=== PATIENT | male | born 1975 | race Caucasian/White ===

== ENCOUNTER 2018-07-14 21:29 | Emergency (ER) | payer OTHER, BC ==
[~2018-07-14] VITALS: Ht 185.4 cm; Wt 79.4 kg
[2018-07-15] MEDS ORDERED: IBUP600 PO (00:12)
[2018-07-15] MEDS ORDERED: Lacri-Lube S.O3.5 GM BOTHEYES (00:12)
[2018-07-15] MEDS ORDERED: ERYT1OIN BOTHEYES (00:12)
== END 2018-07-15 00:38 | disposition home or self-care (01) ==
LOC: ER 21:29
DX: H16.133 Photokeratitis, bilateral (principal); F17.200 Nicotine dependence, unspecified, uncomplicated
CPT/HCPCS: 99283

== ENCOUNTER 2020-12-30 16:15 | Emergency (ER) | payer BC ==
[~2020-12-30] VITALS: Ht 185.4 cm; Wt 81.7 kg
[~2020-12-30 16:15] MED LIST: ERYT1OIN BOTHEYES; IBUP600 PO; Lacri-Lube S.O3.5 GM BOTHEYES
== END 2020-12-30 19:59 | disposition home or self-care (01) ==
LOC: ER 16:15
DX: S43.101A Unspecified dislocation of right acromioclavicular joint, initial encounter (principal); V86.55XA Driver of 3- or 4- wheeled all-terrain vehicle (ATV) injured in nontraffic accident, initial encounter; Y92.410 Unspecified street and highway as the place of occurrence of the external cause
CPT/HCPCS: 73030; 96372; 99283-25; J1885

== ENCOUNTER 2021-12-07 15:12 | Inpatient (IN) | payer BC ==
[~2021-12-07] VITALS: Ht 180.3 cm; Wt 83.9 kg
[2021-12-07 15:41] LABS: BASOPHILS ABSOLUTE AUTO 0.04 K/mm3 (0.00-0.23); BASOPHILS PERCENT AUTO 1 % (0-2); EOSINOPHILS PERCENT AUTO 4 % (0-6); Hematocrit 48.1 % (37.0-53.0); Hemoglobin 16.7 g/dL (13.5-17.5); IMMATURE GRAN ABSOLUTE AUTO 0.01 K/mm3 (0.00-0.10); IMMATURE GRAN PERCENT AUTO 0 % (0-1); LYMPHOCYTES ABSOLUTE AUTO 3.46 K/mm3 (0.84-5.20); LYMPHOCYTES PERCENT AUTO 40 % (21-46); MONOCYTES ABSOLUTE AUTO 0.63 K/mm3 (0.16-1.47); MONOCYTES PERCENT AUTO 7 % (4-13); Mean Corpuscular HGB 29.3 pg (26.0-34.0); Mean Corpuscular HGB Conc 34.7 g/dL (31.5-36.5); Mean Corpuscular Volume 84 fL (80-100); NEUTROPHILS ABSOLUTE AUTO 4.16 K/mm3 (1.96-9.15); NEUTROPHILS PERCENT AUTO 48 % (41-73); Platelet Count 289 K/mm3 (150-400); RDW Coefficient Variation 12.6 % (11.7-14.2); RDW Standard Deviation 38.8 fL (35.1-46.3)
[2021-12-07 15:58] LABS: Alanine Aminotransfer (ALT/SGP 42 U/L (12-78); Albumin/Globulin Ratio 1.1 (0.8-1.8); Alk Phos 106 U/L (50-136); Anion Gap 6 mmol/L (6-16); Aspartate Aminotrans (AST/SGOT 20 U/L (12-37); Bilirubin, Total 0.4 mg/dL (0.1-1.0); Blood Urea Nitrogen 13 mg/dL (8-24); CO2, Blood 29 mmol/L (21-32); Calcium, Blood 8.8 mg/dL (8.5-10.1); Chloride, Blood 104 mmol/L (98-108); Creatinine, Blood 1.18 mg/dL (0.60-1.20); Globulin, Blood 3.7 g/dL (2.2-4.0); Glomerular Filtration Rate >60 (60-); Glucose, Blood 128 mg/dL (70-99); Potassium, Blood 3.5 mmol/L (3.5-5.5); Sodium, Blood 139 mmol/L (136-145); Total Protein, Blood 7.7 g/dL (6.4-8.2); Troponin I <0.015 ng/mL (0.000-0.040)
[2021-12-07 21:39] LABS: Anti-Xa UFH, PHA Monitoring <0.10 IU/mL; International Normalized Ratio 0.97; Prothrombin Time Results 10.2 Sec (9.7-11.5)
[2021-12-08 05:36] LABS: CHOL/HDL RATIO 8.1; Cholesterol 210 mg/dL (50-200); HDL Cholesterol 26 mg/dL (>39); LDL/HDL RATIO 5.3; Low Density Lipoprotein Chol 138 mg/dL (0-110); Triglycerides 229 mg/dL (30-160); Very Low Density Lipoprot Chol 45 mg/dL (6-32)
--- NOTE | 2021-12-08 10:35 | NUR ---
Echocardiogram completed.
--- NOTE | 2021-12-08 12:44 | NUR ---
SHIFT SUMMARY; ASSUMED CARE IN ED AT 0700. HEPARIN GTT AT 17UNITS/KG. REPORTS SLIGHT CHEST PAIN. MEDICATE PER EMAR. A/A/OX4, SPOUSE AT BEDSIDE. CARDIOLOGY TO ROOM, ANGIO PLANNED FOR TODAY. PT TO REMAIN NPO. VSS. REPORT TO CLEO CARPENTER IN PCU TO ASSUME CARE. PT TRANSPORTED VIA GURNEY TO PCU 11 AT 1230.
--- NOTE | 2021-12-08 12:54 | NUR ---
ADMIT NOTE RECEIVED REPORT FROM CLEO READ IN ED. PT TO ROOM, IND TRANSFERED TO BED AT APPROX 1225 . PT AND SPOUSE ORIENTED TO ROOM AND CALL LIGHT. PT STATES HE WAS STANDING AROUND YESTERDAY, STARETD HAVING CHEST PAIN AND SOB. PT A&Ox4; CALM AND COOPERATIVE WITH CARE. PT DENIES PAIN, CHEST PAIN/PRESSURE, SOB, NAUSEA, DIZZINESS AND NUMB/TINGLING AT THIS TIME. NITRO PATCH TO LEFT CHEST NOTED. HEPARIN GTT INFUSION, VERIFIED. VSS. NO OTHER ACUTE CHANGES NOTED DURING SHIFT. WILL CONTINUE TO MONITOR.
--- NOTE | 2021-12-08 14:00 | NUR ---
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
--- NOTE | 2021-12-08 17:46 | NUR ---
SHIFT SUMMARY PT BACK FROM [facility] AT APPROX 1530; RIGHT RADIAL SITE WITH TR BAND IN PLACE, PT REPORTING MILD PAIN, WILL CONTINUE TO MONITOR. STENTS PLACE, WILL RECOVER BAND PER PROTOCOL. VSS. NO OTHER ACUTE CHANGES NOTED. WILL CONTINUE TO MONITOR UNITL REPORT GIVEN TO ONCOMING RN.
[2021-12-09 04:52] LABS: Hematocrit 46.1 % (37.0-53.0); Mean Corpuscular HGB 29.4 pg (26.0-34.0); Mean Corpuscular HGB Conc 34.7 g/dL (31.5-36.5); Mean Corpuscular Volume 85 fL (80-100); Platelet Count 264 K/mm3 (150-400); RDW Standard Deviation 39.9 fL (35.1-46.3); Red Blood Cell Count 5.45 M/mm3 (4.30-5.90); White Blood Cell Count 10.96 K/mm3 (4.00-11.30)
[2021-12-09 05:11] LABS: Anion Gap 5 mmol/L (6-16); Blood Urea Nitrogen 11 mg/dL (8-24); Bun/Creatinine Ratio 11.1 (12.0-20.0); CO2, Blood 24 mmol/L (21-32); Calcium, Blood 8.9 mg/dL (8.5-10.1); Chloride, Blood 106 mmol/L (98-108); Creatinine, Blood 0.99 mg/dL (0.60-1.20); Glomerular Filtration Rate >60 (60-); Glucose, Blood 145 mg/dL (70-99); Potassium, Blood 3.9 mmol/L (3.5-5.5); Sodium, Blood 135 mmol/L (136-145)
--- NOTE | 2021-12-09 05:27 | NUR ---
SHIFT SUMMARY NO ACUTE CHANGES THIS SHIFT. PT A&OX4. SP02>92% ON RA. TELEMETRY SHOWS NSR, HR 80'S-90'S. PT HAS R RADIAL SITE. TR BAND REMOVED AT APPROX 2330. NO BRUISING, BLEEDING, OR HEMATOMA. OPSITE PLACED. ARM BOARD IN PLACE. PT UP TO BATHROOM INDEPENDENTLY. PT TALKED ABOUT HOW HE IS MOTIVATED TO QUIT SMOKING. OFFERED TO CALL MD FOR SMOKING PATCH, PT DENIED, SAID HE JUST WANTED TO STOP COLD TURKEY. PT ALSO STATED HE HAD MILD HEADACHE, BLAMING IT ON DRINKING [place] ALL DAY EVERYDAY BUT HASNT HAD ANY IN 3 DAYS. DENIED PAIN MEDICATION. SLEPT UNTIL ABOUT 3 AM, THEN UP WATCHING TV. STATED HE WAS RESTLESS AND READY TO GO HOME. CALL LIGHT IN REACH.
[2021-12-09] MEDS ORDERED: CLOP75 PO (10:39)
[2021-12-09] MEDS ORDERED: ATOR40TA PO (10:39)
[2021-12-09] MEDS ORDERED: ASPI81CH PO (10:39)
[2021-12-09] MEDS ORDERED: METO25 PO (10:40)
--- NOTE | 2021-12-09 12:08 | NUR ---
DISCHARGE DC INSTRUCTIONS PROVIDED TO PT. PT EDUCATED ON RIGHT ARM RESTRICTIONS AND ALL NEW MEDICATIONS. ALL QUESTIONS ANSWERED.
== END 2021-12-09 11:59 | disposition home or self-care (01) | DRG 247 ==
LOC: ER 15:12 → ERHOLD 15:13 → PCU 20:42
PROVIDERS: Emergency Medicine; Hospitalist; ADMIT Hospitalist
PROC: 027135Z Dilation of Coronary Artery, Two Arteries with Two Drug-eluting Intraluminal Devices, Percutaneous Approach (ICD-10-PCS; principal; 2021-12-08)
PROC: 4A023N7 Measurement of Cardiac Sampling and Pressure, Left Heart, Percutaneous Approach (ICD-10-PCS; 2021-12-08)
PROC: B2111ZZ Fluoroscopy of Multiple Coronary Arteries using Low Osmolar Contrast (ICD-10-PCS; 2021-12-08)
DX: I21.4 Non-ST elevation (NSTEMI) myocardial infarction (principal); I25.10 Atherosclerotic heart disease of native coronary artery without angina pectoris; I10 Essential (primary) hypertension; E66.3 Overweight; Z68.27 Body mass index [BMI] 27.0-27.9, adult; E78.5 Hyperlipidemia, unspecified; F17.210 Nicotine dependence, cigarettes, uncomplicated; Z71.6 Tobacco abuse counseling; Z98.890 Other specified postprocedural states; Z28.21 Immunization not carried out because of patient refusal
CPT/HCPCS: 36415; 71045; 76937; 80048; 80053; 80061; 83036; 83880; 84484; 85025; 85027; 85347; 85520; 85610; 85730; 93005; 93010; 93306; 93454; 96374; 96375; 96376; 99152; 99153; 99285-25; A9270; C1725; C1769; C1874; C1887; C1894; C9600; J1170; J1644; J2250; J2270; J3010; J7030; J7050; Q9967